=== PATIENT | male | born 1975 | race Caucasian/White ===

== ENCOUNTER 2018-10-26 22:59 | Emergency (ER) | payer BC ==
[2018-10-26] MEDS ORDERED: traMADol HCl 50 MG TAB ONE (23:38)
[2018-10-26] MEDS ORDERED: Ibuprofen 200 MG TAB ONE (23:38)
[2018-10-26 23:43] LABS: Clarity Hazy (Clear); Leukocyte Negative (Negative); Nitrite Negative (Negative); Specific Gravity, Urine 1.025 (1.005-1.030)
[2018-10-26 23:44] LABS: Bilirubin Small (Negative); Blood, Urine Large (Negative); Glucose, Urine (Dipstick) Negative (Negative); Protein, Urine (Dipstick) 30 mg/dL (Neg-Trace); Urobilinogen 0.2 mg/dL (0.2-1.0)
[2018-10-26 23:52] LABS: Bacteria/HPF Rare-Few HPF (None Seen); Other Microscopic Description 1+ MUCUS; RBC/HPF 21-50 HPF (0-3); Squamous Epithelial 0-3 HPF (0-3); WBC/HPF 0-3 HPF (0-3)
[2018-10-27] MEDS ORDERED: Dicyclomine 20 MG TAB ONE (00:22)
--- NOTE | 2018-10-27 08:57 | CT ---
PRELIMINARY REPORT/[facility]/EMERGENCY AFTER HOURS PROCEDURE: EXAM: CT Abdomen and Pelvis Without Contrast EXAM DATE/TIME: 10/26/2018 11:57 PM CLINICAL HISTORY: 43 years old, male; Other: Low back pain TECHNIQUE: Imaging protocol: Axial computed tomography images of the abdomen and pelvis without contrast. Banuelos l reformatted images were created and reviewed. Radiation optimization: All CT scans at this facility use at least one of these dose optimization techniques: automated exposure control; mA and/or kV adj ustment per patient size (includes targeted exams where dose is matched to clinical indication); or iterative reconstruction. COMPARISON: No relevant prior studies available. FINDINGS: ABDOMEN: Liver: There is diffuse fatty liver and hepatomegaly. Gallbladder and bile ducts: Normal. No calcified stones. No ductal dilation. Pancreas: Normal. No ductal dilation. Spleen: Normal. No splenomegaly. Adrenals: Normal. No mass. Kidneys and ureters: There is a 3 mm calculus at the left ureteropelvic junction with mild left obstr uctive uropathy. Stomach and bowel: Normal. No obstruction. No mucosal thickening. Appendix: The appendix is unremarkable and seen best on axial image 68 of series 2. PELVIS: Bladder: Unremarkable as visualized. Reproductive: Unremarkable as visualized. ABDOMEN and PELVIS: Intraperitoneal space: Normal. No free air. No significant fluid collection. Bones/joints: No acute fracture. No dislocation. Soft tissues: Unremarkable. Vasculature: There are calcified phleboliths in the pelvis. Lymph nodes: Normal. No enlarged lymph nodes. IMPRESSION: There is a 3 mm calculus at the left ureteropelvic junction with mild left obstructive uropathy. Thank you for allowing us to participate in the care of your patient. Dictated and Authenticated by: Dany Davila MD 10/27/2018 12:52 AM Central Time ([place] & [place]) FINAL REPORT EMERGENCY AFTER HOURS CT STONE PROTOCOL: Date: 10/26/18 IMPRESSION: I agree with the preliminary report provided by Matt. 1. There is a left UPJ calculus causing mild left hydronephrosis. 2. Fatty liver. 3. Mild stranding and shotty appearing lymph nodes seen within the central mesentery is nonspecific and can be seen with sclerosing mesenteritis. 4. Other findings per the preliminary report. POS:
== END 2018-10-27 00:27 | disposition home or self-care (01) ==
LOC: BURERS 22:59
DX: N13.2 Hydronephrosis with renal and ureteral calculous obstruction (principal)
CPT/HCPCS: 74176; 81003; 81015